=== PATIENT | female | born 1990 | race American Indian/Alaskan Native ===

== ENCOUNTER 2018-06-10 16:44 | Inpatient (IN) | payer BC, MEDICAID ==
[2018-06-10] MEDS ORDERED: LACTATED RINGERS 500 ML IV ONE (17:26)
[2018-06-10 19:10] LABS: Hematocrit 38.1 % (30.3-42.9); Hemoglobin 12.4 gm/dl (10.1-14.3); Mean Corpuscular HGB Conc 32 % (30-34); Mean Corpuscular Volume 79 fl (79-97); Platelet Count 223 K/mm3 (140-440); Red Blood Count 4.81 M/mm3 (3.65-5.03)
[2018-06-10 19:16] LABS: Bilirubin,Urine NEG (Negative); Blood,Urine NEG (Negative); Color,Urine Yellow (Yellow); Mucus,Urine FEW /HPF
[2018-06-10 19:18] LABS: Protein,Urine >500 mg/dL (Negative)
[2018-06-10 19:20] LABS: Mean Corpuscular Hemoglobin 26 pg (28-32)
[2018-06-10 19:23] LABS: Alanine Aminotransferase 77 units/L (7-56); Uric Acid 5.8 mg/dL (3.5-7.6)
--- NOTE | 2018-06-10 19:54 | Ultrasound Report ---
FINAL REPORT PROCEDURE: Duplex umbilical artery ultrasound. TECHNIQUE: Doppler velocity measurements and waveforms were obtained from the umbilical artery in 3 different locations. HISTORY: , elevated blood pressure. COMPARISON: No prior studies are available for comparison. FINDINGS: The heart rate is 153 beats per minute. The systolic to diastolic ratio at 3 sites averaged 2.07. The resistive index at 3 sites averaged 0.52. The waveforms appeared normal and were persistent. IMPRESSION: Doppler analysis as described above.
--- NOTE | 2018-06-10 19:59 | Ultrasound Report ---
FINAL REPORT PROCEDURE: Ultrasound biophysical profile without nonstress test. TECHNIQUE: Sonographic evaluation for breathing, movement, tone, and amniotic fluid volume was performed. CPT 97642 HISTORY: , elevated blood pressure. COMPARISON: No prior studies are available for comparison. FINDINGS: Amniotic fluid volume: 2. breathin. movement: 2. tone: 2. Score: 8 of 8. IMPRESSION: Normal biophysical profile.
--- NOTE | 2018-06-10 20:05 | Ultrasound Report ---
FINAL REPORT PROCEDURE: Limited obstetrical ultrasound. TECHNIQUE: Real-time limited sonographic examination was performed for evaluation of size, position, heartbeat, fluid volume for each fetus with image documentation (1 or more fetuses). CPT 15777 HISTORY: well-being, estimated weight, amniotic fluid index. COMPARISON: No prior studies are available for comparison. FINDINGS: There is a single viable fetus in cephalic presentation. Cardiac activity is documented at 153 beats per minute. The amniotic fluid volume appears normal. The amniotic fluid index measures 14.3 centimeters. The placenta is anterior in location and grade 2. The measured parameters are as follows: Biparietal diameter 7.3 centimeters, head circumference 27.0 centimeters, abdominal circumference 24.8 centimeters, femur length 5.3 centimeters. The calculated menstrual age is 29 weeks 0 days. The estimated date of confinement is 08/26/2018. The estimated weight is 1286 grams. IMPRESSION: Viable fetus in cephalic presentation with a menstrual age of 29 weeks 0 days.
[2018-06-10] MEDS ORDERED: CELESTONE SOLUSPAN IM SCH (20:43)
[2018-06-10] MEDS ORDERED: LACTATED RINGERS 1,000 ML ONE (22:07)
[2018-06-10] MEDS ORDERED: MAGNESIUM SULFATE 4GM/100ML 4 GM/100 ML BAG IV ONE ×2 (22:07)
[2018-06-10] MEDS ORDERED: MAGNESIUM SULFATE 40GM/1000ML 40 GM/1,000 ML BAG IV ONE (22:07)
[2018-06-10] MEDS: LACTATED RINGERS 1,000 ML IV SCH (22:37)
[2018-06-10] MEDS ORDERED: LACTATED RINGERS 1,000 ML IV SCH (23:00)
[2018-06-10] MEDS ORDERED: MAGNESIUM SULFATE 40GM/1000ML 40 GM/1,000 ML BAG IV SCH (23:00)
[2018-06-10] MEDS: APRESOLINE IV PRN (23:00)
--- NOTE | 2018-06-10 23:16 | History and Physical Report ---
History of Present Illness Date of admission: 06/10/18 16:55 Chief complaint: elevated blood pressures History of present illness: 27yo at 31 5/7weeks presents transferred from [facility] secondary to blood pressures 160/110s. She has a history of IUGR 0% at 26 weeks and now 1% on repeat US today. She reports good movement and denies loss of fluid or vaginal bleeding. She reports a headache x 1 week and visual changes. Past History Past Medical History: no pertinent history, other Past Surgical History: no surgical history CREDIT ADMINISTRATOR History: herpes Social history: other (Worked for [employer]) - Obstetrical History : 6 Number of Pregnancies: 1 Number of Living Children: 4 Medications and Allergies Allergies Allergy/AdvReac Type Severity Reaction Status Date / Time Penicillins Allergy Severe Swelling Verified 07/10/15 09:23 Home Medications Medication Instructions Recorded Confirmed Last Taken Type Vit-Fe Fumar-FA [ 1 tab PO QDAY 07/02/15 06/10/18 06/08/18 History Vitamin] Hydroxyprogesterone Caproat/Pf 250 mg IM QWEEK 06/10/18 06/10/18 2 Weeks Ago History [Harding] ~05/27/18 Active Meds: Active Medications Betamethasone Acet/Betameth SodPhos (Celestone Soluspan) 12 mg IM Q24HR OBEY Last Admin: 06/10/18 20:43 Dose: 12 mg Hydralazine HCl (Apresoline) 5 mg IV Q30MIN PRN PRN Reason: Hypertension Last Admin: 06/10/18 23:00 Dose: 5 mg Magnesium Sulfate (Magnesium Sulfate 40gm/1000ml) 40 gm in 1,000 mls @ 50 mls/ hr IV DIRECT OBEY Lactated Ringer's (Lactated Ringers) 1,000 mls @ 125 mls/hr IV DIRECT OBEY Last Admin: 06/10/18 22:37 Dose: 75 mls/hr Review of Systems Neurological: headaches - Vital Signs Vital signs: Vital Signs Pulse Pulse Ox 79 98 06/10/18 17:30 06/10/18 17:30 Temp Pulse Resp BP Pulse Ox 98.7 F 112 H 18 154/105 98 06/10/18 20:31 06/10/18 23:11 06/10/18 20:31 06/10/18 23:11 06/10/18 23:09 - Physical Exam Extremities: Positive: normal - Obstetrical FHR: other (150s, occasional variable decels) Uterine Contraction Monitor Mode: External Results Result Diagrams: 06/10/18 18:15 06/10/18 18:15 Abnormal lab results 06/10/18 06/10/18 06/10/18 Range/Units 18:15 18:15 18:15 MCH 26 L (28-32) pg AST 64 H (5-40) units/L ALT 77 H (7-56) units/L Lactate Dehydrogenase 255 H (91-180) units/L Urine WBC (Auto) 11.0 H (0.0-6.0) /HPF All other labs normal. Assessment and Plan - Patient Problems (1) 31 to 32 weeks gestation of Current Visit: Yes Status: Acute (2) Severe preeclampsia Current Visit: Yes Status: Acute Plan to address problem: 1. Betamethasone for lung maturity x 2 doses 2. Start magnesium sulfate for neuroprotection and seizure prophylaxis 3. Re-draw PIH labs in 12hrs -liver enzymes elevated -platelets normal 4. NPO 5. Hydralizine IV prn BP >160/100 6. 24hr urine protein collection. UA protein >500 7. [facility] consult - verbal consult requested 06/10. 8. Due to IUGR and preeclampsia with severe features, recommend delivery after second dose of betamethasone or before if signs of or maternal compromise. Will consult [facility] for delivery plan. (3) Elevated liver enzymes Current Visit: Yes Status: Acute Plan to address problem: Repeat PIH labs in 12 hrs (4) IUGR (intrauterine growth restriction) Current Visit: Yes Status: Acute Plan to address problem: 1. Continuous monitoring. 2. Consult [facility] for delivery. 3. Neonatology consult.
[2018-06-11] MEDS: APRESOLINE IV PRN ×2 (01:16→02:02)
[2018-06-11] MEDS: TYLENOL PO PRN ×2 (01:26→08:02)
[2018-06-11] MEDS ORDERED: ZOFRAN IV PRN ×3 (04:45→13:50)
[2018-06-11 06:37] LABS: Hematocrit 40.2 % (30.3-42.9); Hemoglobin 12.6 gm/dl (10.1-14.3); Mean Corpuscular HGB Conc 31 % (30-34); Mean Corpuscular Volume 80 fl (79-97); Platelet Count 255 K/mm3 (140-440); Red Blood Count 5.04 M/mm3 (3.65-5.03); Red Cell Distribution Width 15.3 % (13.2-15.2)
[2018-06-11 06:44] LABS: Mean Corpuscular Hemoglobin 25 pg (28-32)
[2018-06-11 06:57] LABS: Alanine Aminotransferase 82 units/L (7-56); Albumin 2.7 g/dL (3.9-5); BUN/Creatinine Ratio 20; Blood Urea Nitrogen 12 mg/dL (7-17); Hemolysis Index 8
--- NOTE | 2018-06-11 08:26 | Progress Note ---
Assessment and Plan - Patient Problems (1) 31 to 32 weeks gestation of Current Visit: Yes Status: Acute (2) Severe preeclampsia Current Visit: Yes Status: Acute Plan to address problem: Continue magnesium sulfate. s/p hydralazine 5mg IV x 3. BP currently normotensive [facility] consult pending- MD aware of patient status. Await recommendation on timing of delivery from [facility]. (3) Elevated liver enzymes Current Visit: Yes Status: Acute (4) IUGR (intrauterine growth restriction) Current Visit: Yes Status: Acute Plan to address problem: Category II FHT - on supplemental oxygen now Category I 1% EFW Await recommendation from perinatologist. Subjective - Subjective Interval history: 27yo at 31 6/7weeks presents [facility] secondary to blood pressures 160/110s. She has a history of IUGR 0% at 26 weeks and now 1% on repeat US today. Overnight she had a headache that was treated with Tylenol. Also overnight notified by nursing staff of Category II FHT with decelerations to 100s. Patient is now wearing supplemental oxygen with 10x10 accelerations. She is having irregular contractions and cervix is closed. Dr. Meyer, PAULA, perinatologist responded to consult and will come see patient today. PIH labs were drawn to note trend in liver enzymes. 24hr urine protein is in progress. Patient reports: other (headache relieved by Tylenol) Objective - Vital Signs Vital Signs: Vital Signs - 12hr 06/10/18 06/10/18 06/10/18 20:25 20:31 20:36 Temperature 98.7 F Pulse Rate 93 H 102 H Respiratory 18 Rate Blood Pressure 152/97 Blood Pressure [Right] O2 Sat by Pulse 98 98 Oximetry 06/10/18 06/10/18 06/10/18 20:41 20:46 20:48 Temperature Pulse Rate 90 102 H 93 H Respiratory Rate Blood Pressure 151/97 Blood Pressure [Right] O2 Sat by Pulse 98 98 Oximetry 06/10/18 06/10/18 06/10/18 21:04 21:18 21:33 Temperature Pulse Rate 87 94 H 88 Respiratory Rate Blood Pressure 149/79 163/98 156/91 Blood Pressure [Right] O2 Sat by Pulse Oximetry 06/10/18 06/10/18 06/10/18 21:48 22:03 22:18 Temperature Pulse Rate 96 H 99 H 93 H Respiratory Rate Blood Pressure 149/99 152/100 147/99 Blood Pressure [Right] O2 Sat by Pulse Oximetry 06/10/18 06/10/18 06/10/18 22:33 22:38 22:43 Temperature Pulse Rate 89 93 H 96 H Respiratory Rate Blood Pressure 154/102 173/110 162/104 Blood Pressure [Right] O2 Sat by Pulse Oximetry 06/10/18 06/10/18 06/10/18 22:44 22:48 22:49 Temperature Pulse Rate 98 H 96 H 102 H Respiratory Rate Blood Pressure 177/107 Blood Pressure [Right] O2 Sat by Pulse 98 97 Oximetry 06/10/18 06/10/18 06/10/18 22:53 22:54 22:58 Temperature Pulse Rate 106 H 106 H 112 H Respiratory Rate Blood Pressure 180/109 169/102 Blood Pressure [Right] O2 Sat by Pulse 97 Oximetry 06/10/18 06/10/18 06/10/18 22:59 23:00 23:03 Temperature Pulse Rate 110 H 119 H 113 H Respiratory Rate Blood Pressure 161/108 161/108 Blood Pressure [Right] O2 Sat by Pulse 97 Oximetry 06/10/18 06/10/18 06/10/18 23:04 23:09 23:11 Temperature Pulse Rate 121 H 114 H 112 H Respiratory Rate Blood Pressure 154/105 Blood Pressure [Right] O2 Sat by Pulse 98 98 Oximetry 06/10/18 06/10/18 06/10/18 23:14 23:15 23:19 Temperature 98.2 F Pulse Rate 122 H 110 H 112 H Respiratory 20 Rate Blood Pressure 151/86 143/80 Blood Pressure [Right] O2 Sat by Pulse 97 99 Oximetry 06/10/18 06/10/18 06/10/18 23:23 23:24 23:29 Temperature Pulse Rate 98 H 104 H 93 H Respiratory Rate Blood Pressure 148/85 Blood Pressure [Right] O2 Sat by Pulse 99 99 Oximetry 06/10/18 06/10/18 06/10/18 23:34 23:39 23:44 Temperature Pulse Rate 95 H 96 H 95 H Respiratory Rate Blood Pressure Blood Pressure [Right] O2 Sat by Pulse 99 98 98 Oximetry 06/10/18 06/10/18 06/10/18 23:49 23:54 23:58 Temperature Pulse Rate 95 H 103 H 93 H Respiratory Rate Blood Pressure 171/90 158/94 Blood Pressure [Right] O2 Sat by Pulse 98 99 Oximetry 06/10/18 06/11/18 06/11/18 23:59 00:04 00:09 Temperature Pulse Rate 110 H 95 H 103 H Respiratory Rate Blood Pressure Blood Pressure [Right] O2 Sat by Pulse 99 99 99 Oximetry 06/11/18 06/11/18 06/11/18 00:14 00:19 00:24 Temperature Pulse Rate 96 H 96 H 106 H Respiratory Rate Blood Pressure 160/98 Blood Pressure [Right] O2 Sat by Pulse 99 99 99 Oximetry 06/11/18 06/11/18 06/11/18 00:29 00:34 00:39 Temperature Pulse Rate 106 H 95 H 94 H Respiratory Rate Blood Pressure 161/89 Blood Pressure [Right] O2 Sat by Pulse 98 99 100 Oximetry 06/11/18 06/11/18 06/11/18 00:40 00:44 00:49 Temperature Pulse Rate 94 H 90 97 H Respiratory Rate Blood Pressure 163/89 Blood Pressure [Right] O2 Sat by Pulse 100 100 Oximetry 06/11/18 06/11/18 06/11/18 00:54 01:16 01:17 Temperature Pulse Rate 104 H 96 H Respiratory 20 Rate Blood Pressure 181/101 Blood Pressure [Right] O2 Sat by Pulse 100 Oximetry 06/11/18 06/11/18 06/11/18 02:02 02:16 02:18 Temperature Pulse Rate 103 H Respiratory 22 Rate Blood Pressure 165/92 Blood Pressure [Right] O2 Sat by Pulse 90 Oximetry 06/11/18 06/11/18 06/11/18 02:20 02:25 02:30 Temperature Pulse Rate 101 H 100 H 100 H Respiratory Rate Blood Pressure 144/85 Blood Pressure [Right] O2 Sat by Pulse 97 97 96 Oximetry 06/11/18 06/11/18 06/11/18 02:33 02:35 02:40 Temperature Pulse Rate 93 H 97 H 99 H Respiratory Rate Blood Pressure 134/82 Blood Pressure [Right] O2 Sat by Pulse 96 96 Oximetry 06/11/18 06/11/18 06/11/18 02:45 02:47 02:50 Temperature Pulse Rate 100 H 92 H 94 H Respiratory Rate Blood Pressure 130/77 Blood Pressure [Right] O2 Sat by Pulse 96 95 Oximetry 06/11/18 06/11/1818 02:55 03:00 03:02 Temperature Pulse Rate 97 H 95 H 94 H Respiratory 18 Rate Blood Pressure 130/77 Blood Pressure [Right] O2 Sat by Pulse 95 95 Oximetry 06/11/18 06/11/18 06/11/18 03:03 03:05 03:08 Temperature Pulse Rate 96 H 97 H 97 H Respiratory Rate Blood Pressure Blood Pressure [Right] O2 Sat by Pulse 94 94 94 Oximetry 06/11/18 06/11/18 06/11/18 03:10 03:14 03:15 Temperature Pulse Rate 104 H 98 H 102 H Respiratory Rate Blood Pressure Blood Pressure [Right] O2 Sat by Pulse 95 94 95 Oximetry 06/11/18 06/11/18 06/11/18 03:20 03:25 03:30 Temperature Pulse Rate 101 H 102 H 99 H Respiratory Rate Blood Pressure Blood Pressure [Right] O2 Sat by Pulse 96 96 96 Oximetry 06/11/18 06/11/18 06/11/18 03:35 03:40 03:42 Temperature Pulse Rate 89 90 90 Respiratory Rate Blood Pressure Blood Pressure [Right] O2 Sat by Pulse 96 95 94 Oximetry 06/11/18 06/11/18 06/11/18 03:45 03:49 03:50 Temperature Pulse Rate 88 88 91 H Respiratory Rate Blood Pressure Blood Pressure [Right] O2 Sat by Pulse 94 94 94 Oximetry 06/11/18 06/11/18 06/11/18 03:55 04:00 04:03 Temperature Pulse Rate 91 H 101 H 93 H Respiratory Rate Blood Pressure 142/95 Blood Pressure [Right] O2 Sat by Pulse 94 98 Oximetry 06/11/18 06/11/18 06/11/18 04:05 04:10 04:15 Temperature Pulse Rate 97 H 96 H 94 H Respiratory Rate Blood Pressure Blood Pressure [Right] O2 Sat by Pulse 99 99 99 Oximetry 06/11/18 06/11/18 06/11/18 04:20 04:25 04:30 Temperature Pulse Rate 95 H 102 H 102 H Respiratory Rate Blood Pressure Blood Pressure [Right] O2 Sat by Pulse 99 98 98 Oximetry 06/11/18 06/11/18 06/11/18 04:35 04:40 04:45 Temperature Pulse Rate 98 H 107 H 118 H Respiratory Rate Blood Pressure Blood Pressure [Right] O2 Sat by Pulse 98 99 97 Oximetry 06/11/18 06/11/18 06/11/18 04:50 04:54 04:55 Temperature 96.5 F L Pulse Rate 108 H 101 H Respiratory 20 Rate Blood Pressure Blood Pressure [Right] O2 Sat by Pulse 98 98 Oximetry 06/11/18 06/11/18 06/11/18 05:00 05:03 05:05 Temperature Pulse Rate 107 H 99 H 97 H Respiratory Rate Blood Pressure 166/101 Blood Pressure [Right] O2 Sat by Pulse 98 98 Oximetry 06/11/18 06/11/18 06/11/18 05:07 05:10 05:15 Temperature Pulse Rate 100 H 100 H 105 H Respiratory Rate Blood Pressure 146/83 Blood Pressure [Right] O2 Sat by Pulse 98 98 Oximetry 06/11/18 06/11/18 06/11/18 05:20 05:25 05:30 Temperature Pulse Rate 103 H 102 H 106 H Respiratory Rate Blood Pressure Blood Pressure [Right] O2 Sat by Pulse 98 98 97 Oximetry 06/11/18 06/11/18 06/11/18 05:35 05:40 05:45 Temperature Pulse Rate 95 H 99 H 101 H Respiratory Rate Blood Pressure Blood Pressure [Right] O2 Sat by Pulse 98 98 97 Oximetry 06/11/18 06/11/18 06/11/18 05:50 05:55 06:00 Temperature Pulse Rate 98 H 95 H 96 H Respiratory Rate Blood Pressure Blood Pressure [Right] O2 Sat by Pulse 97 98 97 Oximetry 06/11/18 06/11/18 06/11/18 06:03 06:05 06:10 Temperature Pulse Rate 93 H 95 H 94 H Respiratory Rate Blood Pressure 122/73 Blood Pressure [Right] O2 Sat by Pulse 97 97 Oximetry 06/11/18 06/11/18 06/11/18 06:15 06:20 06:24 Temperature Pulse Rate 98 H 100 H Respiratory 18 Rate Blood Pressure Blood Pressure [Right] O2 Sat by Pulse 97 97 Oximetry 06/11/18 06/11/18 06/11/18 06:25 06:30 06:35 Temperature Pulse Rate 102 H 100 H 97 H Respiratory Rate Blood Pressure Blood Pressure [Right] O2 Sat by Pulse 97 98 98 Oximetry 06/11/18 06/11/18 06/11/18 06:40 06:45 06:50 Temperature Pulse Rate 106 H 99 H 102 H Respiratory Rate Blood Pressure Blood Pressure [Right] O2 Sat by Pulse 97 97 97 Oximetry 06/11/18 06/11/18 06/11/18 06:55 07:00 07:02 Temperature Pulse Rate 99 H 99 H 100 H Respiratory Rate Blood Pressure 131/82 Blood Pressure [Right] O2 Sat by Pulse 97 98 Oximetry 06/11/18 06/11/18 06/11/18 07:04 07:05 07:10 Temperature Pulse Rate 111 H 104 H 98 H Respiratory Rate Blood Pressure Blood Pressure [Right] O2 Sat by Pulse 94 98 99 Oximetry 06/11/18 06/11/18 06/11/18 07:15 07:20 07:25 Temperature Pulse Rate 96 H 95 H 89 Respiratory Rate Blood Pressure Blood Pressure [Right] O2 Sat by Pulse 99 99 99 Oximetry 06/11/18 06/11/18 06/11/18 07:26 07:30 07:33 Temperature 97.9 F Pulse Rate 88 90 88 Respiratory 16 Rate Blood Pressure 138/95 Blood Pressure 138/95 [Right] O2 Sat by Pulse 99 Oximetry 06/11/18 06/11/18 06/11/18 07:35 07:40 07:46 Temperature Pulse Rate 95 H 93 H 89 Respiratory Rate Blood Pressure Blood Pressure [Right] O2 Sat by Pulse 100 99 100 Oximetry 06/11/18 06/11/18 06/11/18 07:51 07:56 08:01 Temperature Pulse Rate 91 H 88 94 H Respiratory Rate Blood Pressure Blood Pressure [Right] O2 Sat by Pulse 99 99 98 Oximetry 06/11/18 06/11/18 06/11/18 08:02 08:06 08:10 Temperature Pulse Rate 101 H 98 H 107 H Respiratory 16 Rate Blood Pressure 140/87 Blood Pressure [Right] O2 Sat by Pulse 95 94 Oximetry 06/11/18 06/11/18 06/11/18 08:11 08:16 08:18 Temperature Pulse Rate 98 H 97 H 100 H Respiratory Rate Blood Pressure Blood Pressure [Right] O2 Sat by Pulse 95 95 94 Oximetry 06/11/18 08:21 Temperature Pulse Rate 98 H Respiratory Rate Blood Pressure Blood Pressure [Right] O2 Sat by Pulse 95 Oximetry - Exam FHR: category 1 (Occasional variables, now 10x10 accelerations), category 2, other (Category ) Cervical Dilatation: 0 (fingertip) Cervical Effacement Percentage: 50 station: -4 Uterine Contraction Pattern: Irregular - Labs Labs: Abnormal Labs 06/10/18 06/10/18 06/10/18 18:15 18:15 18:15 WBC RBC MCH 26 L RDW Sodium Carbon Dioxide Creatinine Glucose Calcium Magnesium AST 64 H ALT 77 H Alkaline Phosphatase Lactate Dehydrogenase 255 H Albumin Urine WBC (Auto) 11.0 H 06/11/18 06/11/18 06:05 06:05 WBC 16.1 H RBC 5.04 H MCH 25 L RDW 15.3 H Sodium 133 L Carbon Dioxide 16 L Creatinine 0.6 L Glucose 108 H Calcium 8.0 L Magnesium 7.10 H AST 60 H ALT 82 H Alkaline Phosphatase 263 H Lactate Dehydrogenase 230 H Albumin 2.7 L Urine WBC (Auto) Laboratory Results - last 24 hr 06/10/18 06/10/18 06/10/18 18:15 18:15 18:15 WBC 9.5 RBC 4.81 Hgb 12.4 Hct 38.1 MCV 79 MCH 26 L MCHC 32 RDW 15.0 Plt Count 223 Sodium Potassium Chloride Carbon Dioxide Anion Gap BUN Creatinine 0.7 Estimated GFR > 60 BUN/Creatinine Ratio Glucose Uric Acid 5.8 Calcium Magnesium Total Bilirubin AST 64 H ALT 77 H Alkaline Phosphatase Lactate Dehydrogenase 255 H Total Protein Albumin Albumin/Globulin Ratio Urine Color Yellow Urine Turbidity Clear Urine pH 7.0 Ur Specific [place] 1.022 Urine Protein >500 Urine Glucose (UA) Neg Urine Ketones Neg Urine Blood Neg Urine Nitrite Neg Urine Bilirubin Neg Urine Urobilinogen 4.0 Ur Leukocyte Esterase Mod Urine WBC (Auto) 11.0 H Urine RBC (Auto) 8.0 U Epithel Cells (Auto) 5.0 Urine Mucus Few Blood Type Antibody Screen 06/10/18 06/11/18 06/11/18 18:15 06:05 06:05 WBC 16.1 H RBC 5.04 H Hgb 12.6 Hct 40.2 MCV 80 MCH 25 L MCHC 31 RDW 15.3 H Plt Count 255 Sodium 133 L Potassium 4.3 Chloride 99.9 Carbon Dioxide 16 L Anion Gap 21 BUN 12 Creatinine 0.6 L Estimated GFR > 60 BUN/Creatinine Ratio 20 Glucose 108 H Uric Acid Calcium 8.0 L Magnesium 7.10 H Total Bilirubin 0.20 AST 60 H ALT 82 H Alkaline Phosphatase 263 H Lactate Dehydrogenase 230 H Total Protein 6.3 Albumin 2.7 L Albumin/Globulin Ratio 0.8 Urine Color Urine Turbidity Urine pH Ur Specific Glover Urine Protein Urine Glucose (UA) Urine Ketones Urine Blood Urine Nitrite Urine Bilirubin Urine Urobilinogen Ur Leukocyte Esterase Urine WBC (Auto) Urine RBC (Auto) U Epithel Cells (Auto) Urine Mucus Blood Type O POSITIVE Antibody Screen Negative
[2018-06-11] MEDS ORDERED: REGLAN ONE (10:26)
[2018-06-11] MEDS ORDERED: PEPCID IV ONE ×2 (10:27→10:55)
--- NOTE | 2018-06-11 10:47 | Progress Note ---
Assessment and Plan - Patient Problems (1) 31 to 32 weeks gestation of Current Visit: Yes Status: Acute (2) Severe preeclampsia Current Visit: Yes Status: Acute Plan to address problem: Celestone dose #1 for FlM was given last night. I discussed this patient with Dr. Nuno. He recommends delivery REGAN. Risks and benefits of the procedure were discussed in detail with the patient which included but not limited to the risks of infection, hemorrhage requiring blood transfusion, injury to the bowel, bladder and blood vessels. She expressed understanding, her questions were answered, she gave her informed consent. Pt is NPO. Will continue close BP and monitoring. Anesthesia has been notified. (3) IUGR (intrauterine growth restriction) Current Visit: Yes Status: Acute Plan to address problem: Cord doppler was normal. PEGGY 14. Subjective - Subjective Date of service: 06/11/18 Principal diagnosis: SIUP at 31 weeks and 6 days with severe pre-eclampsia and IURG Interval history: Patient is a 27 year old , LMP 10/31/2017, EDC 08/07/18 at 31 weeks and 6 days gestation who was sent from [facility] office yesterday evening for elevated BP of 170/114. On admission her BP was in 160'100's. Magnesium was started and celestone for FLM was given. Cervix was closed/long/post. Toxemia labs were abnormal. This AM, she complains of headaches, but denies any visual changes or RUQ pain. tracing is nonreactive but with some accelerations, no decelerations. Sonogram showed EFW of 1286 gm, PEGGY 14, BPP 8/8. Patient reports: other (headache relieved by Tylenol) Objective - Vital Signs Vital Signs: Vital Signs - 12hr 06/10/18 06/10/18 06/10/18 22:44 22:48 22:49 Temperature Pulse Rate 98 H 96 H 102 H Respiratory Rate Blood Pressure 177/107 Blood Pressure [Right] O2 Sat by Pulse 98 97 Oximetry 06/10/18 06/10/18 06/10/18 22:53 22:54 22:58 Temperature Pulse Rate 106 H 106 H 112 H Respiratory Rate Blood Pressure 180/109 169/102 Blood Pressure [Right] O2 Sat by Pulse 97 Oximetry 06/10/18 06/10/18 06/10/18 22:59 23:00 23:03 Temperature Pulse Rate 110 H 119 H 113 H Respiratory Rate Blood Pressure 161/108 161/108 Blood Pressure [Right] O2 Sat by Pulse 97 Oximetry 06/10/18 06/10/18 06/10/18 23:04 23:09 23:11 Temperature Pulse Rate 121 H 114 H 112 H Respiratory Rate Blood Pressure 154/105 Blood Pressure [Right] O2 Sat by Pulse 98 98 Oximetry 06/10/18 06/10/18 06/10/18 23:14 23:15 23:19 Temperature 98.2 F Pulse Rate 122 H 110 H 112 H Respiratory 20 Rate Blood Pressure 151/86 143/80 Blood Pressure [Right] O2 Sat by Pulse 97 99 Oximetry 06/10/18 06/10/18 06/10/18 23:23 23:24 23:29 Temperature Pulse Rate 98 H 104 H 93 H Respiratory Rate Blood Pressure 148/85 Blood Pressure [Right] O2 Sat by Pulse 99 99 Oximetry 06/10/18 06/10/18 06/10/18 23:34 23:39 23:44 Temperature Pulse Rate 95 H 96 H 95 H Respiratory Rate Blood Pressure Blood Pressure [Right] O2 Sat by Pulse 99 98 98 Oximetry 06/10/18 06/10/18 06/10/18 23:49 23:54 23:58 Temperature Pulse Rate 95 H 103 H 93 H Respiratory Rate Blood Pressure 171/90 158/94 Blood Pressure [Right] O2 Sat by Pulse 98 99 Oximetry 06/10/18 06/11/18 06/11/18 23:59 00:04 00:09 Temperature Pulse Rate 110 H 95 H 103 H Respiratory Rate Blood Pressure Blood Pressure [Right] O2 Sat by Pulse 99 99 99 Oximetry 06/11/18 06/11/18 06/11/18 00:14 00:19 00:24 Temperature Pulse Rate 96 H 96 H 106 H Respiratory Rate Blood Pressure 160/98 Blood Pressure [Right] O2 Sat by Pulse 99 99 99 Oximetry 06/11/18 06/11/18 06/11/18 00:29 00:34 00:39 Temperature Pulse Rate 106 H 95 H 94 H Respiratory Rate Blood Pressure 161/89 Blood Pressure [Right] O2 Sat by Pulse 98 99 100 Oximetry 06/11/18 06/11/18 06/11/18 00:40 00:44 00:49 Temperature Pulse Rate 94 H 90 97 H Respiratory Rate Blood Pressure 163/89 Blood Pressure [Right] O2 Sat by Pulse 100 100 Oximetry 06/11/18 06/11/18 06/11/18 00:54 01:16 01:17 Temperature Pulse Rate 104 H 96 H Respiratory 20 Rate Blood Pressure 181/101 Blood Pressure [Right] O2 Sat by Pulse 100 Oximetry 06/11/18 06/11/18 06/11/18 02:02 02:16 02:18 Temperature Pulse Rate 103 H Respiratory 22 Rate Blood Pressure 165/92 Blood Pressure [Right] O2 Sat by Pulse 90 Oximetry 06/11/18 06/11/18 06/11/18 02:20 02:25 02:30 Temperature Pulse Rate 101 H 100 H 100 H Respiratory Rate Blood Pressure 144/85 Blood Pressure [Right] O2 Sat by Pulse 97 97 96 Oximetry 06/11/18 06/11/18 06/11/18 02:33 02:35 02:40 Temperature Pulse Rate 93 H 97 H 99 H Respiratory Rate Blood Pressure 134/82 Blood Pressure [Right] O2 Sat by Pulse 96 96 Oximetry 06/11/18 06/11/18 06/11/18 02:45 02:47 02:50 Temperature Pulse Rate 100 H 92 H 94 H Respiratory Rate Blood Pressure 130/77 Blood Pressure [Right] O2 Sat by Pulse 96 95 Oximetry 06/11/18 06/11/18 06/11/18 02:55 03:00 03:02 Temperature Pulse Rate 97 H 95 H 94 H Respiratory 18 Rate Blood Pressure 130/77 Blood Pressure [Right] O2 Sat by Pulse 95 95 Oximetry 06/11/18 06/11/18 06/11/18 03:03 03:05 03:08 Temperature Pulse Rate 96 H 97 H 97 H Respiratory Rate Blood Pressure Blood Pressure [Right] O2 Sat by Pulse 94 94 94 Oximetry 06/11/18 06/11/18 06/11/18 03:10 03:14 03:15 Temperature Pulse Rate 104 H 98 H 102 H Respiratory Rate Blood Pressure Blood Pressure [Right] O2 Sat by Pulse 95 94 95 Oximetry 06/11/18 06/11/18 06/11/18 03:20 03:25 03:30 Temperature Pulse Rate 101 H 102 H 99 H Respiratory Rate Blood Pressure Blood Pressure [Right] O2 Sat by Pulse 96 96 96 Oximetry 06/11/18 06/11/18 06/11/18 03:35 03:40 03:42 Temperature Pulse Rate 89 90 90 Respiratory Rate Blood Pressure Blood Pressure [Right] O2 Sat by Pulse 96 95 94 Oximetry 06/11/18 06/11/18 06/11/18 03:45 03:49 03:50 Temperature Pulse Rate 88 88 91 H Respiratory Rate Blood Pressure Blood Pressure [Right] O2 Sat by Pulse 94 94 94 Oximetry 06/11/18 06/11/18 06/11/18 03:55 04:00 04:03 Temperature Pulse Rate 91 H 101 H 93 H Respiratory Rate Blood Pressure 142/95 Blood Pressure [Right] O2 Sat by Pulse 94 98 Oximetry 06/11/18 06/11/18 06/11/18 04:05 04:10 04:15 Temperature Pulse Rate 97 H 96 H 94 H Respiratory Rate Blood Pressure Blood Pressure [Right] O2 Sat by Pulse 99 99 99 Oximetry 06/11/18 06/11/18 06/11/18 04:20 04:25 04:30 Temperature Pulse Rate 95 H 102 H 102 H Respiratory Rate Blood Pressure Blood Pressure [Right] O2 Sat by Pulse 99 98 98 Oximetry 06/11/18 06/11/18 06/11/18 04:35 04:40 04:45 Temperature Pulse Rate 98 H 107 H 118 H Respiratory Rate Blood Pressure Blood Pressure [Right] O2 Sat by Pulse 98 99 97 Oximetry 06/11/18 06/11/18 06/11/18 04:50 04:54 04:55 Temperature 96.5 F L Pulse Rate 108 H 101 H Respiratory 20 Rate Blood Pressure Blood Pressure [Right] O2 Sat by Pulse 98 98 Oximetry 06/11/18 06/11/18 06/11/18 05:00 05:03 05:05 Temperature Pulse Rate 107 H 99 H 97 H Respiratory Rate Blood Pressure 166/101 Blood Pressure [Right] O2 Sat by Pulse 98 98 Oximetry 06/11/18 06/11/18 06/11/18 05:07 05:10 05:15 Temperature Pulse Rate 100 H 100 H 105 H Respiratory Rate Blood Pressure 146/83 Blood Pressure [Right] O2 Sat by Pulse 98 98 Oximetry 06/11/18 06/11/18 06/11/18 05:20 05:25 05:30 Temperature Pulse Rate 103 H 102 H 106 H Respiratory Rate Blood Pressure Blood Pressure [Right] O2 Sat by Pulse 98 98 97 Oximetry 06/11/18 06/11/18 06/11/18 05:35 05:40 05:45 Temperature Pulse Rate 95 H 99 H 101 H Respiratory Rate Blood Pressure Blood Pressure [Right] O2 Sat by Pulse 98 98 97 Oximetry 06/11/18 06/11/18 06/11/18 05:50 05:55 06:00 Temperature Pulse Rate 98 H 95 H 96 H Respiratory Rate Blood Pressure Blood Pressure [Right] O2 Sat by Pulse 97 98 97 Oximetry 06/11/18 06/11/18 06/11/18 06:03 06:05 06:10 Temperature Pulse Rate 93 H 95 H 94 H Respiratory Rate Blood Pressure 122/73 Blood Pressure [Right] O2 Sat by Pulse 97 97 Oximetry 06/11/18 06/11/18 06/11/18 06:15 06:20 06:24 Temperature Pulse Rate 98 H 100 H Respiratory 18 Rate Blood Pressure Blood Pressure [Right] O2 Sat by Pulse 97 97 Oximetry 06/11/18 06/11/18 06/11/18 06:25 06:30 06:35 Temperature Pulse Rate 102 H 100 H 97 H Respiratory Rate Blood Pressure Blood Pressure [Right] O2 Sat by Pulse 97 98 98 Oximetry 06/11/18 06/11/18 06/11/18 06:40 06:45 06:50 Temperature Pulse Rate 106 H 99 H 102 H Respiratory Rate Blood Pressure Blood Pressure [Right] O2 Sat by Pulse 97 97 97 Oximetry 06/11/18 06/11/18 06/11/18 06:55 07:00 07:02 Temperature Pulse Rate 99 H 99 H 100 H Respiratory Rate Blood Pressure 131/82 Blood Pressure [Right] O2 Sat by Pulse 97 98 Oximetry 06/11/18 06/11/18 06/11/18 07:04 07:05 07:10 Temperature Pulse Rate 111 H 104 H 98 H Respiratory Rate Blood Pressure Blood Pressure [Right] O2 Sat by Pulse 94 98 99 Oximetry 06/11/18 06/11/18 06/11/18 07:15 07:20 07:25 Temperature Pulse Rate 96 H 95 H 89 Respiratory Rate Blood Pressure Blood Pressure [Right] O2 Sat by Pulse 99 99 99 Oximetry 06/11/18 06/11/18 06/11/18 07:26 07:30 07:33 Temperature 97.9 F Pulse Rate 88 90 88 Respiratory 16 Rate Blood Pressure 138/95 Blood Pressure 138/95 [Right] O2 Sat by Pulse 99 Oximetry 06/11/18 06/11/18 06/11/18 07:35 07:40 07:46 Temperature Pulse Rate 95 H 93 H 89 Respiratory Rate Blood Pressure Blood Pressure [Right] O2 Sat by Pulse 100 99 100 Oximetry 06/11/18 06/11/18 06/11/18 07:51 07:56 08:01 Temperature Pulse Rate 91 H 88 94 H Respiratory Rate Blood Pressure Blood Pressure [Right] O2 Sat by Pulse 99 99 98 Oximetry 06/11/18 06/11/18 06/11/18 08:02 08:06 08:10 Temperature Pulse Rate 101 H 98 H 107 H Respiratory 16 Rate Blood Pressure 140/87 Blood Pressure [Right] O2 Sat by Pulse 95 94 Oximetry 06/11/18 06/11/18 06/11/18 08:11 08:16 08:18 Temperature Pulse Rate 98 H 97 H 100 H Respiratory Rate Blood Pressure Blood Pressure [Right] O2 Sat by Pulse 95 95 94 Oximetry 06/11/18 06/11/18 06/11/18 08:21 08:23 08:26 Temperature Pulse Rate 98 H 99 H 99 H Respiratory Rate Blood Pressure Blood Pressure [Right] O2 Sat by Pulse 95 94 95 Oximetry 06/11/18 06/11/18 06/11/18 08:30 08:31 08:36 Temperature Pulse Rate 98 H 98 H 102 H Respiratory Rate Blood Pressure Blood Pressure [Right] O2 Sat by Pulse 94 94 94 Oximetry 06/11/18 06/11/18 06/11/18 08:41 08:42 08:46 Temperature Pulse Rate 97 H 102 H 100 H Respiratory Rate Blood Pressure Blood Pressure [Right] O2 Sat by Pulse 95 94 95 Oximetry 06/11/18 06/11/18 06/11/18 08:51 08:53 08:56 Temperature Pulse Rate 110 H 101 H 98 H Respiratory Rate Blood Pressure Blood Pressure [Right] O2 Sat by Pulse 95 94 94 Oximetry 06/11/18 06/11/18 06/11/18 09:01 09:02 09:06 Temperature Pulse Rate 101 H 98 H 100 H Respiratory Rate Blood Pressure 131/77 Blood Pressure [Right] O2 Sat by Pulse 93 92 Oximetry 06/11/18 06/11/18 06/11/18 09:11 09:16 09:21 Temperature Pulse Rate 101 H 96 H 100 H Respiratory Rate Blood Pressure Blood Pressure [Right] O2 Sat by Pulse 91 91 90 Oximetry 06/11/18 06/11/18 06/11/18 09:26 09:31 09:36 Temperature Pulse Rate 97 H 98 H 95 H Respiratory Rate Blood Pressure Blood Pressure [Right] O2 Sat by Pulse 91 93 93 Oximetry 06/11/18 06/11/18 06/11/18 09:41 09:46 09:51 Temperature Pulse Rate 98 H 106 H 101 H Respiratory Rate Blood Pressure Blood Pressure [Right] O2 Sat by Pulse 91 93 94 Oximetry 06/11/18 06/11/18 06/11/18 09:56 10:01 10:03 Temperature Pulse Rate 92 H 99 H 93 H Respiratory Rate Blood Pressure 140/94 Blood Pressure [Right] O2 Sat by Pulse 97 96 Oximetry 06/11/18 06/11/18 06/11/18 10:06 10:09 10:11 Temperature Pulse Rate 100 H 115 H 125 H Respiratory Rate Blood Pressure Blood Pressure [Right] O2 Sat by Pulse 96 94 94 Oximetry 06/11/18 06/11/18 06/11/18 10:16 10:21 10:26 Temperature Pulse Rate 104 H 98 H 99 H Respiratory Rate Blood Pressure Blood Pressure [Right] O2 Sat by Pulse 94 96 96 Oximetry 06/11/18 06/11/18 06/11/18 10:31 10:36 10:41 Temperature Pulse Rate 93 H 106 H 99 H Respiratory Rate Blood Pressure Blood Pressure [Right] O2 Sat by Pulse 96 97 99 Oximetry - Exam Cardiovascular: Normal S1, Normal S2 Lungs: Clear to auscultation Vulva: both: normal FHR: category 2 Uterine Contraction Monitor Mode: External Cervical Dilatation: 0 Cervical Effacement Percentage: 0 station: -3 Uterine Contraction Pattern: Absent - Labs Labs: Abnormal Labs 06/10/18 06/10/18 06/10/18 18:15 18:15 18:15 WBC RBC MCH 26 L RDW Sodium Carbon Dioxide Creatinine Glucose Calcium Magnesium AST 64 H ALT 77 H Alkaline Phosphatase Lactate Dehydrogenase 255 H Albumin Urine WBC (Auto) 11.0 H 06/11/18 06/11/18 06:05 06:05 WBC 16.1 H RBC 5.04 H MCH 25 L RDW 15.3 H Sodium 133 L Carbon Dioxide 16 L Creatinine 0.6 L Glucose 108 H Calcium 8.0 L Magnesium 7.10 H AST 60 H ALT 82 H Alkaline Phosphatase 263 H Lactate Dehydrogenase 230 H Albumin 2.7 L Urine WBC (Auto) Laboratory Results - last 24 hr 06/10/18 06/10/18 06/10/18 18:15 18:15 18:15 WBC 9.5 RBC 4.81 Hgb 12.4 Hct 38.1 MCV 79 MCH 26 L MCHC 32 RDW 15.0 Plt Count 223 Sodium Potassium Chloride Carbon Dioxide Anion Gap BUN Creatinine 0.7 Estimated GFR > 60 BUN/Creatinine Ratio Glucose Uric Acid 5.8 Calcium Magnesium Total Bilirubin AST 64 H ALT 77 H Alkaline Phosphatase Lactate Dehydrogenase 255 H Total Protein Albumin Albumin/Globulin Ratio Urine Color Yellow Urine Turbidity Clear Urine pH 7.0 Ur Specific [place] 1.022 Urine Protein >500 Urine Glucose (UA) Neg Urine Ketones Neg Urine Blood Neg Urine Nitrite Neg Urine Bilirubin Neg Urine Urobilinogen 4.0 Ur Leukocyte Esterase Mod Urine WBC (Auto) 11.0 H Urine RBC (Auto) 8.0 U Epithel Cells (Auto) 5.0 Urine Mucus Few Blood Type Antibody Screen 06/10/18 06/11/18 06/11/18 18:15 06:05 06:05 WBC 16.1 H RBC 5.04 H Hgb 12.6 Hct 40.2 MCV 80 MCH 25 L MCHC 31 RDW 15.3 H Plt Count 255 Sodium 133 L Potassium 4.3 Chloride 99.9 Carbon Dioxide 16 L Anion Gap 21 BUN 12 Creatinine 0.6 L Estimated GFR > 60 BUN/Creatinine Ratio 20 Glucose 108 H Uric Acid Calcium 8.0 L Magnesium 7.10 H Total Bilirubin 0.20 AST 60 H ALT 82 H Alkaline Phosphatase 263 H Lactate Dehydrogenase 230 H Total Protein 6.3 Albumin 2.7 L Albumin/Globulin Ratio 0.8 Urine Color Urine Turbidity Urine pH Ur Specific [place] Urine Protein Urine Glucose (UA) Urine Ketones Urine Blood Urine Nitrite Urine Bilirubin Urine Urobilinogen Ur Leukocyte Esterase Urine WBC (Auto) Urine RBC (Auto) U Epithel Cells (Auto) Urine Mucus Blood Type O POSITIVE Antibody Screen Negative - Results US- obstetric: report reviewed
[2018-06-11] MEDS ORDERED: REGLAN IV ONE (10:55)
[2018-06-11] MEDS ORDERED: BICITRA PO ONE (10:55)
[2018-06-11] MEDS ORDERED: NARCAN 0.4 MG/1 ML IV PRN ×2 (10:57→13:50)
[2018-06-11] MEDS ORDERED: PHENERGAN PR PRN (10:57)
[2018-06-11] MEDS ORDERED: BENADRYL IV PRN (10:57)
[2018-06-11] MEDS ORDERED: PHENERGAN PO PRN (10:57)
--- NOTE | 2018-06-11 10:57 | Anesthesia Day of Surgery ---
Anesthesia Day of Surgery - Day of Surgery Patient Examined: Yes Patient H&P Reviewed: Yes Patient is NPO: Yes
--- NOTE | 2018-06-11 10:57 | Anesthesia Consultation ---
Anesthesia Consult and Med Hx Date of service: 06/11/18 - Airway Anesthetic Teeth Evaluation: Good ROM Head & Neck: Adequate Mental/Hyoid Distance: Adequate Mallampati Class: Class II Intubation Access Assessment: Probably Good - Pre-Operative Health Status ASA Pre-Surgery Classification: ASA3 Proposed Anesthetic Plan: Epidural, Spinal - Pulmonary Hx Asthma: Yes (last attack 3yrs ago) COPD: No Hx Pneumonia: No - Cardiovascular System Hx Hypertension: Yes (severe PIH) - Central Nervous System Hx Seizures: No Hx Psychiatric Problems: No - Endocrine Hx Renal Disease: No Hx End Stage Renal Disease: No Hx Hypothyroidism: No Hx Hyperthyroidism: No - Hematic Hx Anemia: No Hx Sickle Cell Disease: No - Other Systems Hx Alcohol Use: No
[2018-06-11] MEDS ORDERED: TORADOL IV PRN ×3 (10:58→13:50)
[2018-06-11] MEDS ORDERED: LACTATED RINGERS 1,000 ML IV SCH (11:00)
[2018-06-11] MEDS ORDERED: PITOCin/NS 20 UNIT/1000ML DRIP 20 UNITS/1,000 ML BAG IV SCH ×2 (11:00→14:00)
[2018-06-11] MEDS ORDERED: SODIUM CHLORIDE FLUSH SYRINGE 10 ML IV NR ×2 (11:00→14:00)
[2018-06-11] MEDS ORDERED: ANCEF/STERILE WATER 2 GM/20 ML 2 GM/20 ML SYRINGE IV NR (11:00)
[2018-06-11] MEDS ORDERED: WATER FOR IRRIG STERILE IR ONE (11:35)
[2018-06-11] MEDS ORDERED: NACL 0.9% IR ONE (11:35)
[2018-06-11] MEDS ORDERED: GARAMYCIN/NS 100 MG/100 ML 100 MG/100 ML BAG IV SCH (12:00)
[2018-06-11] MEDS ORDERED: CLEOCIN 600 MG/50 mL 600 MG/50 ML BAG IV NR (12:00)
[2018-06-11] MEDS ORDERED: NEO SYNEPHRINE/NS Syringe(OR USE) IV ONE (12:07)
[2018-06-11] MEDS ORDERED: XYLOCAINE MPF 2% ONE ×2 (12:28→12:30)
[2018-06-11] MEDS ORDERED: NACL 0.9% 1000 ML 1,000 ML ONE (13:19)
[2018-06-11] MEDS ORDERED: MORPHINE ONE (13:30)
[2018-06-11] MEDS ORDERED: MILK OF MAGNESIA PO PRN (13:50)
[2018-06-11] MEDS ORDERED: LANSINOH TP PRN (13:50)
[2018-06-11] MEDS ORDERED: MORPHINE IV PRN (13:50)
[2018-06-11] MEDS ORDERED: SENOKOT PO PRN (13:50)
[2018-06-11] MEDS ORDERED: MYLICON PO PRN (13:50)
[2018-06-11] MEDS ORDERED: TYLENOL PO PRN (13:50)
[2018-06-11] MEDS ORDERED: TUCKS PAD TP PRN (13:50)
[2018-06-11] MEDS ORDERED: MAGNESIUM SULFATE 40GM/1000ML 40 GM/1,000 ML BAG IV SCH (14:00)
[2018-06-11] MEDS: DILAUDID IV PRN ×2 (14:30→14:59)
--- NOTE | 2018-06-11 15:09 | Operative Report ---
Operative Report Operative Report: Preoperative diagnosis: 1. SIUP at 31 weeks and 6 days gestation not in labor. 2. Preeclampsia with severe features. 3. IUGR. 4. CAT 2 tracing. Postoperative diagnosis: Same as preoperative diagnosis. Procedure: Primary Classical C/section. Surgeon: Dr. Lane Business Process Lead: none Anesthesia: epidural EBL: 600 cc IVF: 2100 cc of RL Urine: 100 clear Complications: none Intraoperative findings: 1. A female found in a RAJAN position, delivered at 12:29 PM, Apgars as per NICU, weight 1180 gm. 2. Normal fallopian tubes and ovaries bilaterally. Procedure details: The risks, benefits, and alternatives of the procedure were discussed in detail with the patient which included but not limited to the risk of infection, hemorrhage requiring blood transfusion, injury to the bowel or bladder and blood vessels. The patient expressed understanding, her questions were answered , and she gave informed consent. The patient was taken to the operating room with an IV fluid infusing Ringer's lactate. In the operating room, she was placed in a sitting position and given epidural anesthesia. Then, she was placed in the dorsal supine position with a leftward tilt. Venodyne boots and Saxena catheter were placed. The abdomen was washed and she was prepared and draped in usual sterile fashion. After confirming adequate epidural anesthesia , a Pfannenstiel skin incision was made in the lower abdomen at about 2 cm above the pubic symphysis using the scalpel. This incision was carried down to the underlying fascia using the Bovie. The fascia was incised bilaterally in curvilinear fashion using the Bovie. 2 straight Kocker clamps were used to grasp the upper edge of the fascia from which the underlying rectus abdominis muscle was dissected off using the Bovie. A similar procedure was done with the lower edge of the fascia to dissect the underlying rectus abdominis muscle. The muscle was bluntly from the midline by pulling. The parietal peritoneum was grasped with 2 hemostat clamps and entered sharply using Metzenbaum scissors. A quick survey of the anatomy revealed a gravid uterus, normal right fallopian tube, previous left salpingectomy and normal ovaries bilaterally. A bladder flap was created. Chris'O retractor was placed in the incision for proper visualization. The lower uterine segment was very thick with confluence of large vessels. Therefore a classical uterine incision was made using the scalpel and extended superiorly and inferiorly using bandage scissors. The amniotic sac was ruptured and there was a copious amount of clear amniotic fluids. The infant was found in an RAJAN position, the head was delivered traumatically followed by the delivery of the shoulders and the rest of the body at 12:29 PM. The cord was clamped 2 and cut and the was handed off to the awaiting NICU team. The is a female, Apgars were as per NICU, weight was 1180 gms. Cord blood was collected. The placenta was delivered manually and it was complete with a three-vessel cord. The uterine cavity was cleaned of clot and debris using dry lap sponges. The uterine incision was repaired in a running locked fashion using 0 Vicryl sutures. Two more layers of imbrication was placed. The gutters were cleaned of clots and debris using dry lap sponges. The instrument were removed from the abdomen. The rectus muscle was reapproximated using interrupted stitches of 0 Vicryl. The fascia was closed in a running fashion using 0 Vicryl sutures. The skin was closed with stacy. Sterile dressing was placed. The counts of laps, needles, sponges, and instruments were correct 2. The patient tolerated the procedure well. She was taken to the recovery room in a stable condition.
[2018-06-11 20:35] LABS: Hematocrit 34.6 % (30.3-42.9); Hemoglobin 10.9 gm/dl (10.1-14.3); Mean Corpuscular HGB Conc 32 % (30-34); Mean Corpuscular Volume 80 fl (79-97); Platelet Count 250 K/mm3 (140-440); Red Blood Count 4.33 M/mm3 (3.65-5.03); Red Cell Distribution Width 15.4 % (13.2-15.2)
[2018-06-11 20:43] LABS: Mean Corpuscular Hemoglobin 25 pg (28-32)
[2018-06-11 21:17] LABS: Basophils % (Manual) 0 % (0.0-1.8); Eosinophils % (Manual) 0 % (0.0-4.3); Total Cells Counted 100
[2018-06-11 21:18] LABS: Anisocytosis 1+; Hypochromasia 1+; Large Platelets 1+; Platelet Estimate Cons; Poikilocytosis 1+
[2018-06-11] MEDS: NORMODYNE PO SCH (21:39)
[2018-06-12 00:47] LABS: Hematocrit 31.4 % (30.3-42.9); Hemoglobin 10.2 gm/dl (10.1-14.3)
[2018-06-12] MEDS: LACTATED RINGERS 1,000 ML IV SCH (04:23)
[2018-06-12] MEDS ORDERED: BOOSTRIX IM ONE (06:00)
--- NOTE | 2018-06-12 10:36 | Progress Note ---
Assessment and Plan A: POD #1 for IUGR /preeclampsia P: Continue Post op care Subjective - Subjective Date of service: 06/12/18 Principal diagnosis: SIUP at 31 weeks and 6 days with severe pre-eclampsia and IURG Patient reports: appetite normal : in NICU Objective - Vital Signs Latest vital signs: Vital Signs Temp Pulse Resp BP BP Pulse Ox 06/12/18 06:00 98.6 F 77 18 138/76 06/12/18 04:05 98.4 F 84 18 131/83 06/12/18 02:10 98.0 F 73 18 138/73 06/12/18 00:00 98.2 F 65 18 115/75 06/11/18 22:15 98.0 F 78 18 141/83 06/11/18 21:39 85 135/86 06/11/18 20:05 98.2 F 86 18 135/86 06/11/18 17:27 97.3 F L 88 20 144/91 97 06/11/18 15:45 97.9 F 76 18 144/92 98 06/11/18 15:20 145/90 06/11/18 15:15 76 16 150/95 06/11/18 15:10 150/95 06/11/18 15:00 88 14 128/92 06/11/18 14:50 75 9 L 134/82 100 06/11/18 14:45 97.9 F 77 17 125/92 98 06/11/18 14:40 72 12 127/85 100 06/11/18 14:30 71 12 130/83 100 06/11/18 14:20 69 13 129/83 100 06/11/18 14:15 72 14 127/72 06/11/18 14:10 68 12 126/83 100 06/11/18 14:00 72 12 121/75 100 06/11/18 13:50 74 18 118/76 100 06/11/18 13:45 97.6 F 73 16 117/90 06/11/18 13:40 73 18 107/66 100 06/11/18 13:35 73 16 108/66 06/11/18 13:32 92 06/11/18 13:30 97.6 F 70 16 96/54 06/11/18 11:36 98 H 99 06/11/18 11:31 104 H 98 06/11/18 11:27 103 H 173/95 06/11/18 11:26 103 H 98 06/11/18 11:21 97 H 98 06/11/18 11:16 101 H 98 06/11/18 11:11 101 H 97 06/11/18 11:06 97 H 99 06/11/18 11:03 99 H 162/95 06/11/18 11:02 96 H 173/101 06/11/18 11:01 100 H 99 06/11/18 10:56 93 H 98 06/11/18 10:51 96 H 98 06/11/18 10:46 94 H 98 06/11/18 10:41 99 H 99 Intake and Output 06/11/18 06/12/18 06/12/18 22:59 06:59 14:59 Intake Total 240 480 Output Total 700 2600 Balance -460 -2120 Intake: Oral 240 480 Output: Urine 700 2600 Indwelling Catheter 500 2600 Uretheral (Saxena) 200 Other: Total, Intake Amount 240 240 Total, Output Amount 500 1000 # Voids Indwelling Catheter 2 # Bowel Movements 0 - Exam Breasts: Present: deferred Cardiovascular: Present: Regular rate Lungs: Present: Clear to auscultation Abdomen: Present: soft Uterus: Present: fundal height below umbilicus Extremities: Present: normal Deep Tendon Reflex Grade: Normal +2 Incision: Present: dressed - Labs Labs: Abnormal lab results 06/11/18 06/11/18 06/12/18 Range/Units 19:57 19:57 00:19 WBC 21.7 H (4.5-11.0) K/mm3 MCH 25 L (28-32) pg RDW 15.4 H (13.2-15.2) % Seg Neuts % (Manual) 86.0 H (40.0-70.0) % Lymphocytes % (Manual) 4.0 L (13.4-35.0) % Monocytes % (Manual) 10.0 H (0.0-7.3) % Seg Neutrophils # Man 18.7 H (1.8-7.7) K/mm3 Lymphocytes # (Manual) 0.9 L (1.2-5.4) K/mm3 Monocytes # (Manual) 2.2 H (0.0-0.8) K/mm3 Magnesium 6.10 H 5.50 H (1.7-2.3) mg/dL 06/12/18 Range/Units 04:21 WBC (4.5-11.0) K/mm3 MCH (28-32) pg RDW (13.2-15.2) % Seg Neuts % (Manual) (40.0-70.0) % Lymphocytes % (Manual) (13.4-35.0) % Monocytes % (Manual) (0.0-7.3) % Seg Neutrophils # Man (1.8-7.7) K/mm3 Lymphocytes # (Manual) (1.2-5.4) K/mm3 Monocytes # (Manual) (0.0-0.8) K/mm3 Magnesium 6.40 H (1.7-2.3) mg/dL
[2018-06-12] MEDS: NORMODYNE PO SCH ×2 (10:57→22:05)
[2018-06-12] MEDS: MOTRIN PO PRN ×2 (16:05→22:09)
[2018-06-12] MEDS: PERCOCET 5/325 PO PRN (16:06)
[2018-06-13] MEDS: PERCOCET 5/325 PO PRN ×2 (00:45→09:33)
[2018-06-13] MEDS: PRENATAL VITAMIN PO SCH (09:32)
[2018-06-13] MEDS: MOTRIN PO PRN (09:32)
[2018-06-13] MEDS: FEOSOL PO SCH (09:33)
[2018-06-13] MEDS: NORMODYNE PO SCH ×2 (11:00→22:15)
--- NOTE | 2018-06-13 11:20 | Progress Note ---
Assessment and Plan A: /postop day 2. Anemia. P: Repeat labs. Supplement with iron. Subjective - Subjective Date of service: 06/13/18 Principal diagnosis: /postop day 2 Interval history: /postop day 2. Doing well. Patient reports small amount of lochia. Patient is voiding without difficulty. She is ambulating well. She is tolerating a regular diet without nausea or vomiting. Patient reports she had a mild headache this morning but is improving. Patient denies visual disturbance, abdominal pain, cough, shortness of breath, chest pain, leg pain, or any other problems. Patient reports: appetite normal, voiding normally, pain well controlled, flatus , bowel movement, ambulating normally [place]: doing well, in NICU Objective - Vital Signs Latest vital signs: Vital Signs Temp Pulse Resp BP BP BP Pulse Ox 06/13/18 08:21 99.1 F 85 14 150/82 96 06/13/18 00:23 97.9 F 86 18 128/79 06/12/18 22:05 78 147/93 06/12/18 22:03 78 147/93 06/12/18 17:36 98.5 F 78 20 154/97 97 06/12/18 12:26 98.3 F 87 20 150/95 98 Intake and Output 06/12/18 06/13/18 06/13/18 23:59 07:59 15:59 Intake Total 540 Output Total 1700 Balance -1700 540 Intake: Intake, Free Water 540 Output: Urine 1700 Indwelling Catheter 600 Void 1100 Other: Total, Output Amount 900 # Voids Indwelling Catheter 1 Void 2 1 - Exam Breasts: Present: deferred Cardiovascular: Present: Regular rate, Normal S1, Normal S2, No murmurs Lungs: Present: Clear to auscultation Abdomen: Present: normal appearance, soft, normal bowel sounds. Absent: distention, tenderness, guarding Uterus: Present: normal, firm, fundal height below umbilicus. Absent: bogginess , tenderness Extremities: Present: normal. Absent: tenderness, edema Incision: Present: normal, dry, intact - Labs Labs: Abnormal lab results 06/12/18 Range/Units 11:59 Magnesium 6.10 H (1.7-2.3) mg/dL
[2018-06-13 11:49] LABS: Hematocrit 29.5 % (30.3-42.9); Hemoglobin 9.6 gm/dl (10.1-14.3); Mean Corpuscular HGB Conc 33 % (30-34); Mean Corpuscular Volume 79 fl (79-97); Platelet Count 205 K/mm3 (140-440); Red Blood Count 3.73 M/mm3 (3.65-5.03); Red Cell Distribution Width 14.9 % (13.2-15.2)
[2018-06-13 11:50] LABS: Mean Corpuscular Hemoglobin 26 pg (28-32)
[2018-06-13 12:07] LABS: Alanine Aminotransferase 67 units/L (7-56); Albumin 2.4 g/dL (3.9-5); BUN/Creatinine Ratio 14; Blood Urea Nitrogen 10 mg/dL (7-17); Calcium 8.3 mg/dL (8.4-10.2); Hemolysis Index 5
[2018-06-14] MEDS: MOTRIN PO PRN ×3 (01:10→17:13)
[2018-06-14] MEDS: PERCOCET 5/325 PO PRN ×3 (01:10→17:13)
[2018-06-14] MEDS: PRENATAL VITAMIN PO SCH (08:47)
[2018-06-14] MEDS: FEOSOL PO SCH (08:48)
[2018-06-14] MEDS: NORMODYNE PO SCH ×2 (10:43→22:44)
--- NOTE | 2018-06-14 11:52 | Progress Note ---
Assessment and Plan A: /postop day 3 S/P section. Preeclampsia. Anemia. P: Continue iron supplementation. Will consult with Dr. Green re: patient and disposition/timing of discharge. Subjective - Subjective Date of service: 06/14/18 Principal diagnosis: /postop day 3 Interval history: /postop day 3. Patient reports she had a headache this morning but is now resolving. Patient reports small amount of lochia. Patient is voiding without difficulty. She is ambulating well. She is tolerating a regular diet without nausea or vomiting. Patient denies visual disturbance, abdominal or epigastric pain, nausea or vomiting, leg pain, chest pain, shortness of breath, cough, or symptoms of depression. Patient reports: appetite normal, voiding normally, pain well controlled, flatus , bowel movement, ambulating normally [place]: doing well, in NICU Objective - Vital Signs Latest vital signs: Vital Signs Temp Pulse Resp BP BP Pulse Ox 06/14/18 10:43 140/86 06/14/18 10:17 140/86 06/14/18 08:01 98.7 F 76 16 141/91 96 06/14/18 00:55 99.2 F 91 H 18 133/71 06/13/18 22:15 88 142/87 Intake and Output 06/13/18 06/14/18 06/14/18 23:59 07:59 15:59 Intake Total 480 180 Balance 480 180 Intake: Intake, Free Water 480 180 Other: # Voids Void 2 1 - Exam Breasts: Present: deferred Cardiovascular: Present: Regular rate, Normal S1, Normal S2 Lungs: Present: Clear to auscultation Abdomen: Present: normal appearance, soft, normal bowel sounds. Absent: distention, tenderness, guarding, rigidity Uterus: Present: normal, firm, fundal height below umbilicus. Absent: bogginess , tenderness Extremities: Present: normal. Absent: tenderness, edema Incision: Present: normal, dry, intact - Labs Labs: Abnormal lab results 06/13/18 06/13/18 Range/Units 11:26 11:26 WBC 13.9 H (4.5-11.0) K/mm3 Hgb 9.6 L (10.1-14.3) gm/dl Hct 29.5 L (30.3-42.9) % MCH 26 L (28-32) pg Sodium 135 L (137-145) mmol/L Calcium 8.3 L (8.4-10.2) mg/dL AST 45 H (5-40) units/L ALT 67 H (7-56) units/L Alkaline Phosphatase 165 H (35-129) units/L Total Protein 5.2 L (6.3-8.2) g/dL Albumin 2.4 L (3.9-5) g/dL
--- NOTE | 2018-06-14 12:22 | Event Note ---
Date: 06/14/18 Increased Labetalol to 300 mg po BID. CMP ordered for tomorrow at 06:00 am.
[2018-06-15 08:20] LABS: Alanine Aminotransferase 151 units/L (7-56); Albumin 2.9 g/dL (3.9-5); BUN/Creatinine Ratio 20; Blood Urea Nitrogen 14 mg/dL (7-17); Hemolysis Index 24
[2018-06-15] MEDS: MOTRIN PO PRN ×2 (08:35→21:55)
[2018-06-15] MEDS: FEOSOL PO SCH (12:13)
[2018-06-15] MEDS: NORMODYNE PO SCH ×2 (12:13→21:55)
[2018-06-15] MEDS: PRENATAL VITAMIN PO SCH (12:13)
[2018-06-15 16:55] LABS: Hematocrit 33.4 % (30.3-42.9); Hemoglobin 10.8 gm/dl (10.1-14.3); Mean Corpuscular HGB Conc 32 % (30-34); Mean Corpuscular Volume 80 fl (79-97); Platelet Count 318 K/mm3 (140-440); Red Blood Count 4.19 M/mm3 (3.65-5.03); Red Cell Distribution Width 15.2 % (13.2-15.2)
[2018-06-15 17:01] LABS: Mean Corpuscular Hemoglobin 26 pg (28-32)
[2018-06-15 17:28] LABS: Uric Acid 6.5 mg/dL (3.5-7.6)
--- NOTE | 2018-06-15 19:07 | Progress Note ---
Assessment and Plan - Patient Problems (1) S/P primary low transverse Current Visit: Yes Status: Acute Plan to address problem: POD 4 - stable Continue routine postop orders Anticipate discharge in 24 hours (2) Severe preeclampsia Current Visit: Yes Status: Acute Plan to address problem: BPs stable On Labetalol 300mg PO BID Continue routine BP checks and antihypertensive therapy (3) Elevated liver enzymes Current Visit: Yes Status: Acute Plan to address problem: Dr. Lane consulted about plan of care. Recommended repeat CBC, UA & LDH. Subjective - Subjective Date of service: 06/15/18 Principal diagnosis: Postop day 4; Severe pre-eclampsia, Elevated liver enzymes Patient reports: appetite normal, voiding normally, pain well controlled, flatus , bowel movement, ambulating normally, other (denies headache, visual disturbances or epigastric pain), no dizzy ambulation : doing well, in NICU Objective - Vital Signs Latest vital signs: Vital Signs Temp Pulse Resp BP Pulse Ox 06/15/18 15:28 98.8 F 83 16 104/75 96 06/15/18 12:32 98.2 F 88 14 116/78 98 06/15/18 08:13 100.0 F H 98 H 16 144/85 98 06/15/18 05:26 90 128/75 96 06/14/18 22:44 91 H 143/93 06/14/18 22:39 98.4 F 96 H 20 143/93 95 - Exam Cardiovascular: Present: Regular rate Lungs: Present: Clear to auscultation Abdomen: Present: normal appearance, soft Vulva: both: normal Uterus: Present: normal, firm, fundal height below umbilicus Extremities: Present: normal Deep Tendon Reflex Grade: Normal +2 Incision: Present: normal, dry, intact - Labs Labs: Abnormal lab results 06/15/18 06/15/18 06/15/18 Range/Units 07:28 16:26 16:26 WBC 14.2 H (4.5-11.0) K/mm3 MCH 26 L (28-32) pg Sodium 134 L (137-145) mmol/L Potassium 5.2 H D (3.6-5.0) mmol/L Carbon Dioxide 20 L (22-30) mmol/L AST 115 H (5-40) units/L ALT 151 H (7-56) units/L Alkaline Phosphatase 162 H (35-129) units/L Lactate Dehydrogenase 286 H (91-180) units/L Albumin 2.9 L (3.9-5) g/dL
--- NOTE | 2018-06-15 19:53 | Progress Note ---
Assessment and Plan - Patient Problems (1) 31 to 32 weeks gestation of Current Visit: Yes Status: Acute (2) Severe preeclampsia Current Visit: Yes Status: Acute Plan to address problem: Will continue BP monitoring. I told the patient that is her BP becomes elevated again, magnesium sulfate will be started. At this time, she is asymptomatic. I advised her to notify her nurse of any headache, visual disturbances or RUQ pain. Jeffery repeat toxemia labs in AM. Pt's nurse Ashley was told to call MD if BP is anywhere over 140/90 tonight. (3) IUGR (intrauterine growth restriction) Current Visit: Yes Status: Acute (4) delivery delivered Current Visit: Yes Status: Acute Plan to address problem: Continue routine postop care. Subjective - Subjective Date of service: 06/15/18 Principal diagnosis: Postop day 4; Severe pre-eclampsia, Elevated liver enzymes Interval history: Patient is a 27 year old , who is S/P C/section 4 days ago at 31 weeks and 6 days gestation for severe pre-ecalampsia. She was treated with magnesium which was discontinued 24 hrs after the delivery. Her BP became stable and she has been on labetolol. Her liver enzymes started to normalize but became elevated this AM. I saw her this evening. She denies any headaches, visual changes or RUQ pain. Her BP has been in the 120-130's/70's. Exam: no RUQ tenderness, DTRs normal, trace pedal edema. Objective - Vital Signs Latest vital signs: Vital Signs Temp Pulse Resp BP Pulse Ox 06/15/18 15:28 98.8 F 83 16 104/75 96 06/15/18 12:32 98.2 F 88 14 116/78 98 06/15/18 08:13 100.0 F H 98 H 16 144/85 98 06/15/18 05:26 90 128/75 96 06/14/18 22:44 91 H 143/93 06/14/18 22:39 98.4 F 96 H 20 143/93 95 - Exam Cardiovascular: Present: Normal S1, Normal S2 Lungs: Present: Clear to auscultation Deep Tendon Reflex Grade: Normal +2 - Labs Labs: Abnormal lab results 06/15/18 06/15/18 06/15/18 Range/Units 07:28 16:26 16:26 WBC 14.2 H (4.5-11.0) K/mm3 MCH 26 L (28-32) pg Sodium 134 L (137-145) mmol/L Potassium 5.2 H D (3.6-5.0) mmol/L Carbon Dioxide 20 L (22-30) mmol/L AST 115 H (5-40) units/L ALT 151 H (7-56) units/L Alkaline Phosphatase 162 H (35-129) units/L Lactate Dehydrogenase 286 H (91-180) units/L Albumin 2.9 L (3.9-5) g/dL
--- NOTE | 2018-06-16 10:04 | Progress Note ---
Assessment and Plan Patient Problems (1) S/P primary low transverse Current Visit: Yes Status: Acute Plan to address problem: POD 5 - stable Continue routine postop orders Anticipate discharge today [id number] [facility] labs/liver enzymes (2) Severe preeclampsia Current Visit: Yes Status: Acute Plan to address problem: BPs stable 110-120s/70s On Labetalol 300mg PO BID Continue routine BP checks and antihypertensive therapy (3) Elevated liver enzymes Current Visit: Yes Status: Acute Plan to address problem: Repeat labs today. Discharge home today pending levels. Pt asymptomatic. Subjective - Subjective Date of service: 06/16/18 Principal diagnosis: Postop day 5; Severe pre-eclampsia, Elevated liver enzymes Patient reports: appetite normal, voiding normally, pain well controlled, flatus , bowel movement, ambulating normally [place]: doing well (premature, pt pumping breast), in NICU Objective - Vital Signs Latest vital signs: Vital Signs Temp Pulse Resp BP BP BP Pulse Ox 06/16/18 06:00 83 104/64 06/16/18 04:00 84 119/76 06/16/18 02:00 84 117/72 06/16/18 00:00 86 119/77 06/15/18 23:00 84 100/57 06/15/18 21:55 94 H 146/80 06/15/18 20:00 87 134/78 06/15/18 15:28 98.8 F 83 16 104/75 96 06/15/18 12:32 98.2 F 88 14 116/78 98 - Exam Breasts: Present: normal Cardiovascular: Present: Regular rate, Normal S1, Normal S2 Lungs: Present: Clear to auscultation, Normal air movement Abdomen: Present: normal appearance, soft, tenderness (as expected), normal bowel sounds. Absent: distention Vulva: both: normal Uterus: Present: firm, fundal height below umbilicus (-1) Extremities: Present: normal Deep Tendon Reflex Grade: Normal +2 Incision: Present: normal (LTI closed with stacy. CDI, no drainage), dry, intact - Labs Labs: Abnormal lab results 06/15/18 06/15/18 Range/Units 16:26 16:26 WBC 14.2 H (4.5-11.0) K/mm3 MCH 26 L (28-32) pg Lactate Dehydrogenase 286 H (91-180) units/L
[2018-06-16] MEDS: NORMODYNE PO SCH (11:00)
[2018-06-16 12:40] LABS: Alanine Aminotransferase 111 units/L (7-56); BUN/Creatinine Ratio 26; Blood Urea Nitrogen 21 mg/dL (7-17); Calcium 8.7 mg/dL (8.4-10.2); Hemolysis Index 0
--- NOTE | 2018-06-16 15:20 | Discharge Summary ---
Providers - Providers Date of Admission: 06/10/18 16:55 Date of discharge: 06/16/18 Attending physician: TAYLOR RAUSCH MD 06/10/18 23:00 Consult to Physician [CONS] Routine Comment: Consulting Provider: ADEEL CHIANG Physician Instructions: Reason For Exam: PreEclampsia Primary care physician: TAYLOR RAUSCH MD Hospitalization Reason for admission: IUP - , other (preeclampsia) Delivery: Procedure: primary low transverse Procedure details: See H&P and operative note Episiotomy: none Laceration: none Incision: normal (LTI, clsoed with stacy, CDI, open to air, no drainage), dry , intact Other procedures: none complications: none Discharge diagnosis: other (S/p preeclampsia), delivery Condition at discharge: Good Disposition: DC-01 TO HOME OR SELFCARE Plan - Provider Discharge Summary Activity: routine, no sex for 6 weeks, no heavy lifting 4 weeks, no strenuous exercise Diet: routine Instructions: routine Additional instructions: [] Smoking cessation referral if applicable(refer to patient education folder for contact #) [] Refer to [facility] Booklet Call your doctor immediately for: * Fever > 100.5 * Heavy vaginal bleeding ( >1 pad per hour) * Severe persistent headache * Shortness of breath * Reddened, hot, painful area to leg or breast * Drainage or odor from incision. * Keep incision clean and dry at all times and follow doctor's instructions regarding bathing/showering - Follow up plan Follow up: TAYLOR RAUSCH MD [Primary Care Provider] - 06/19/18
[2018-06-16] MEDS ORDERED: NORMODYNE PO ONE (16:00)
[2018-06-16 17:57] VITALS: BP 129/76
== END 2018-06-16 18:10 | disposition home or self-care (01) | DRG 765 ==
LOC: TRG 16:44 → LD 16:55 → OB 06-11 16:40
PROVIDERS: ADMIT Obstetrics & Gynecology; ATTEND Obstetrics & Gynecology
PROC: 10D00Z0 Extraction of Products of Conception, High, Open Approach (ICD-10-PCS; principal; 2018-06-10)
PROC: 3E0234Z Introduction of Serum, Toxoid and Vaccine into Muscle, Percutaneous Approach (ICD-10-PCS; 2018-06-12)
DX: O11.4 Pre-existing hypertension with pre-eclampsia, complicating childbirth (principal); O36.5930 Maternal care for other known or suspected poor fetal growth, third trimester, not applicable or unspecified; O60.14X0 Preterm labor third trimester with preterm delivery third trimester, not applicable or unspecified; O90.81 Anemia of the puerperium; D64.9 Anemia, unspecified; O75.89 Other specified complications of labor and delivery; R79.89 Other specified abnormal findings of blood chemistry; O99.52 Diseases of the respiratory system complicating childbirth; J45.909 Unspecified asthma, uncomplicated; Z3A.32 32 weeks gestation of pregnancy; Z37.0 Single live birth; Z88.0 Allergy status to penicillin; Z23 Encounter for immunization
CPT/HCPCS: 36415; 76816; 76819; 76820; 80053; 81001; 82565; 83615; 83735; 84450; 84460; 84550; 85007; 85014; 85018; 85025; 85027; 86592; 86850; 86900; 86901; 88307; 90715; 99211; C9250; G0463; J0360; J0702; J1200; J1580; J1885; J2270; J2370; J2405; J2590; J2765; J3475; J7030; J7120

== ENCOUNTER 2018-11-26 19:38 | Emergency (ER) | payer BC, MEDICAID ==
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
[2018-11-27 01:43] VITALS: BP 107/57
== END 2018-11-27 01:43 | disposition home or self-care (01) ==
LOC: ED 19:38
DX: S16.1XXA Strain of muscle, fascia and tendon at neck level, initial encounter (principal); M54.6 Pain in thoracic spine; I10 Essential (primary) hypertension; J45.909 Unspecified asthma, uncomplicated; Z88.0 Allergy status to penicillin; V49.49XA Driver injured in collision with other motor vehicles in traffic accident, initial encounter; Y93.89 Activity, other specified; Y92.488 Other paved roadways as the place of occurrence of the external cause; Y99.8 Other external cause status
CPT/HCPCS: 72040; 72070; 99283

== ENCOUNTER 2019-01-07 08:28 | Emergency (ER) | payer BC, MEDICAID ==
[2019-01-07] MEDS ORDERED: IBUPROFEN PO ONE (09:03)
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
[2019-01-07 11:01] VITALS: BP 112/72
== END 2019-01-07 10:30 | disposition home or self-care (01) ==
LOC: ED 08:28
DX: S40.011A Contusion of right shoulder, initial encounter (principal); S40.211A Abrasion of right shoulder, initial encounter; I10 Essential (primary) hypertension; J45.909 Unspecified asthma, uncomplicated; Z88.0 Allergy status to penicillin; V49.59XA Passenger injured in collision with other motor vehicles in traffic accident, initial encounter; Y93.89 Activity, other specified; Y92.410 Unspecified street and highway as the place of occurrence of the external cause; Y99.8 Other external cause status